=== PATIENT | female | born 1935 | race Caucasian/White ===

== ENCOUNTER 2016-12-31 09:39 | Day surgery (SDC) | payer MEDICARE, OTHER ==
[~2016-12-31 09:39] MED LIST: LACTATED RINGERS 1,000 ML IV.SOLN IV ONE; LIDOCAINE HCL/PF 2% 100 MG/5 ML VIAL IJ ONE; PROPOFOL 500 MG/50 ML VIAL IV ONE; SALINE FLUSH 10 ML DISP.SYRIN IVF ONE
--- NOTE | 2017-01-03 08:20 | GI Report ---
REFERRING PHYSICIAN: Dr. Osmani Joyner CITY MANAGER: Lalo Jang MD PROCEDURE MEDICATION: Propofol as per anesthesia. INDICATIONS: This is a 81-year-old woman who had a colonoscopy 12 years ago. She has had a recent kind of change in her stool and had a little blood in her stool with a little pain in the left lower quadrant. She is referred for the above indications. PROCEDURE PERFORMED: Colonoscopy and polypectomy. PROCEDURE: An Olympus video colonoscope was advanced to the rectum. She does have mild diverticular disease of the sigmoid colon but no obvious diverticulitis. An atonic redundant colon and it took nurse compression and rotating supine to reach the cecum. In the cecum, she has a 4 mm flat polyp which was removed with electrocautery and submitted to pathology. One hemoclip was placed just for closure of the polypectomy site. On slow withdrawal, the remaining part of the cecum, ascending colon, and transverse colon with no obvious intraluminal lesions noted. The descending colon and sigmoid with some redundancy and a few diverticula in the sigmoid colon. She does have a hemorrhoid in the rectum. Patient tolerated the procedure well. FINDINGS: 1. Sessile polyp removed from the cecum with electrocautery and hemoclip placed. 2. Mild diverticular disease of the sigmoid colon. 3. An atonic redundant colon. RECOMMENDATIONS: 1. I would increase bulk fiber in the diet or add Metamucil or Citrucel. 2. Consider re-looking at her colon in 5 years pending the pathology of the polyp. cc: Dr. Osmani FRITZ
== END 2016-12-31 09:40 ==
LOC: OPSURG 09:39
PROVIDERS: ATTEND Internal Medicine Gastroenterology
DX: K92.1 Melena (principal); D12.0 Benign neoplasm of cecum; K57.30 Diverticulosis of large intestine without perforation or abscess without bleeding
CPT/HCPCS: J2001; J2704; J7120; 45385; S1016

== ENCOUNTER 2017-05-20 10:58 | Outpatient (CLI) | payer MEDICARE, OTHER ==
--- NOTE | 2017-05-20 15:38 | Diagnostic Imaging Report ---
DAVID HENDRICKS [facility] [id number] [facility] [address] [id number] Report Submission Date: May 20, 2017 11:23:07 AM CDT Patient Study Name: MESFIN BERKOWITZ Date: May 20, 2017 11:03:39 AM CDT Modality Type: CR Gender: O Description: CHEST : 39 Institution: [facility] Physician: DAVID HENDRICKS Examination: Plain film ribs History: Discomfort Findings: 3 views of the ribs normal cortical margins. No fracture or dislocation. Shoulder articular degenerative changes. Blunting of the left costophrenic margin. No other parenchymal abnormality. Impression: No rib abnormality. Probable left base effusion/consolidation. Electronically signed on May 20, 2017 11:23:07 AM CDT by: Magdy FRITZ
== END 2017-05-20 11:00 ==
LOC: RAD 10:58
PROVIDERS: ATTEND Family Medicine
DX: R07.81 Pleurodynia (principal)
CPT/HCPCS: 71100

== ENCOUNTER 2017-08-19 11:32 | Outpatient (CLI) | payer MEDICARE, OTHER ==
[2017-08-19 12:00] LABS: BASOPHILS % 0.6 (0.0-1.5); EOSINOPHILS % 2.2 % (0.0-6.8); MEAN CORPUSCULAR HEMOGLOBIN 30.4 pg (28.0-34.0); MEAN CORPUSCULAR VOLUME 91.1 fl (80.0-100.0); NEUTROPHILS # 3.4 # k/uL (1.4-7.7)
[2017-08-19 12:23] LABS: eGFR (African) > 60; eGFR (Non-African) > 60
== END 2017-08-19 11:33 ==
LOC: LAB 11:32
PROVIDERS: ATTEND Family Medicine
DX: I10 Essential (primary) hypertension (principal)
CPT/HCPCS: 36415; 80053; 85025

== ENCOUNTER 2017-11-27 15:10 | Outpatient (CLI) | payer MEDICARE, OTHER | END 2017-11-27 15:11 | LOC: RT 15:10 | PROVIDERS: ATTEND Family Medicine | DX: I49.9 Cardiac arrhythmia, unspecified (principal) ==

== ENCOUNTER 2018-01-07 12:32 | Outpatient (CLI) | payer MEDICARE, OTHER | END 2018-01-07 12:33 | LOC: CARD 12:32 | PROVIDERS: ATTEND Internal Medicine Cardiovascular Disease | DX: I49.3 Ventricular premature depolarization (principal); I10 Essential (primary) hypertension; R60.9 Edema, unspecified | CPT/HCPCS: G0463 ==

== ENCOUNTER 2019-06-12 13:23 | Outpatient (CLI) | payer MEDICARE, OTHER | END 2019-06-12 13:25 | LOC: RT 13:23 | PROVIDERS: ATTEND Family Medicine | DX: I49.3 Ventricular premature depolarization (principal) | CPT/HCPCS: 93005 ==